=== PATIENT | male | born 1970 | race Caucasian/White ===

== ENCOUNTER 2018-11-30 14:03 | Emergency (ER) | payer OTHER ==
[~2018-11-30] VITALS: Ht 180.3 cm; Wt 153.1 kg
[~2018-11-30 14:03] MED LIST: ATEN25TA7 PO
[2018-11-30 14:15] VITALS: BP 168/109
--- NOTE | 2018-11-30 14:39 | NUR ---
BIB SIGNIFICANT OTHER C/O NAUSEA X1 HR. PT STATES HE "WAS JUST SITTING AT HOME AND FELT LIKE HE WAS GOING TO PASS OUT". PT STATES TO FEEL SOME ANXIETY. DENIES VOMITING OR DIARRHEA. DENIES PAIN AT THIS TIME. DENIES FALLS. AAOX4. PT IN BED IN GOWN; BED IN LOWER LOCKED POSITION; BEDRAILS UP X1. HX: HTN RX: ATENALOL, LOSARTAN
[2018-11-30] MEDS ORDERED: NACL 0.9% 1,000 ML IV ONE (15:30)
[2018-11-30] MEDS ORDERED: ONDANSETRON 4 MG/2 ML VIAL IVP ONE (15:30)
--- NOTE | 2018-11-30 15:37 | NUR ---
XRAY AT BEDSIDE.
--- NOTE | 2018-11-30 15:50 | NUR ---
LAB AT BEDSIDE.
[2018-11-30 16:05] LABS: BASOPHILS # (AUTO) 0.1 K/uL (0.00-0.22); BASOPHILS % (AUTO) 0.8 % (0.0-2.0); EOSINOPHILS # (AUTO) 0.1 K/uL (0-0.4); HEMATOCRIT 41.6 % (36-52); HEMOGLOBIN 13.7 g/dL (12.0-18.0); LYMPHOCYTES # (AUTO) 2.8 K/uL (2.0-11.5); LYMPHOCYTES % (AUTO) 27.4 % (20.5-51.1); MEAN CORPUSCULAR HEMOGLOBIN 29 pg (27-31); MEAN CORPUSCULAR HGB CONC 33 g/dL (33-37); MEAN CORPUSCULAR VOLUME 88.6 fL (80-94); MONOCYTES # (AUTO) 0.9 K/uL (0.8-1.0); MONOCYTES % (AUTO) 8.4 % (1.7-9.3); NEUTROPHILS # (AUTO) 6.4 K/uL (1.8-7.7); NEUTROPHILS % (AUTO) 62.4 % (42.2-75.2); PLATELET COUNT (AUTO) 331 K/uL (140-450); RED BLOOD CELL COUNT(AUTO) 4.69 MIL/uL (4.20-6.10); RED CELL DISTRIBUTION WIDTH 12.9 % (11.6-13.7); WHITE BLOOD COUNT (AUTO) 10.2 K/uL (4.8-10.8)
--- NOTE | 2018-11-30 16:13 | NUR ---
URINE COLLECTED AND READY FOR LAB DECATIZER.
[2018-11-30 16:23] LABS: CARBON DIOXIDE 27.9 mmol/L (21-32); POTASSIUM 3.9 mmol/L (3.5-5.1)
[2018-11-30 16:29] LABS: ALBUMIN 3.6 g/dL (3.4-5.0); TOTAL BILIRUBIN 0.3 mg/dL (0.0-1.0)
--- NOTE | 2018-11-30 17:09 | NUR ---
PATIENT DENIES ANY DIZZINESS OR NAUSEA, STATES HE FEELS SO MUCH BETTER.
[2018-11-30 17:11] LABS: BARBITURATE, URINE NEGATIVE ng/ml (NEG <=200); BENZODIAZEPINE, URINE NEGATIVE ng/mL (NEG <=200); CANNABINOID, URINE NEGATIVE ng/mL (NEG <=50); COCAINE, URINE NEGATIVE ng/mL (NEG <=300); OPIATE, URINE NEGATIVE ng/mL (NEG <=2000); PHENCYCLIDINE SCREEN,URINE NEGATIVE ng/mL (NEG <=25)
[2018-11-30 17:20] LABS: APPEARANCE,URINE CLEAR (CLEAR); COLOR,URINE YELLOW (YELLOW)
[2018-11-30 17:21] LABS: PH,URINE 6.5 (5.0-9.0)
[2018-11-30 17:22] LABS: BILIRUBIN,URINE NEGATIVE (NEGATIVE); BLOOD, URINE NEGATIVE (NEGATIVE); LEUKOCYTE ESTERASE ,URINE NEGATIVE (NEGATIVE); NITRITE, URINE NEGATIVE (NEGATIVE); UGLUCOSE NEGATIVE (NEGATIVE)
[2018-11-30 18:29] VITALS: BP 146/85
== END 2018-11-30 18:29 | disposition home or self-care (01) ==
LOC: MED 14:03
DX: I10 Essential (primary) hypertension (principal); R11.0 Nausea; H53.149 Visual discomfort, unspecified; F17.210 Nicotine dependence, cigarettes, uncomplicated; Z79.899 Other long term (current) drug therapy; Z88.8 Allergy status to other drugs, medicaments and biological substances
CPT/HCPCS: 36415; 71045; 80053; 80305; 81003; 84484; 85025; 93005; 96361; 96374; 99284; J2405; J7030; Q0092

== ENCOUNTER 2019-07-29 19:54 | Emergency (ER) | payer OTHER ==
[~2019-07-29] VITALS: Ht 180.3 cm; Wt 149.7 kg
[2019-07-29 20:06] VITALS: BP 157/77
[2019-07-29] MEDS ORDERED: NACL 0.9% 500 ML IV ONE (20:25)
[2019-07-29] MEDS ORDERED: KETOROLAC 30 MG/ML VIAL IVP ONE (20:25)
[2019-07-29 20:56] LABS: BASOPHILS # (AUTO) 0.1 K/uL (0.00-0.22); BASOPHILS % (AUTO) 0.6 % (0.0-2.0); EOSINOPHILS # (AUTO) 0.2 K/uL (0-0.4); EOSINOPHILS % (AUTO) 1.6 % (0.0-4.0); HEMATOCRIT 40.6 % (36-52); HEMOGLOBIN 13.8 g/dL (12.0-18.0); LYMPHOCYTES # (AUTO) 4.1 K/uL (2.0-11.5); MEAN CORPUSCULAR HEMOGLOBIN 30 pg (27-31); MEAN CORPUSCULAR HGB CONC 34 g/dL (33-37); MONOCYTES # (AUTO) 0.9 K/uL (0.8-1.0); MONOCYTES % (AUTO) 8.7 % (1.7-9.3); NEUTROPHILS % (AUTO) 49.1 % (42.2-75.2); PLATELET COUNT (AUTO) 297 K/uL (140-450); RED BLOOD CELL COUNT(AUTO) 4.62 MIL/uL (4.20-6.10); RED CELL DISTRIBUTION WIDTH 13.8 % (11.6-13.7); WHITE BLOOD COUNT (AUTO) 10.2 K/uL (4.8-10.8)
[2019-07-29 21:31] LABS: ANION GAP 16.1 (8-16); CARBON DIOXIDE 24.4 mmol/L (21-32); CREATININE 1.2 mg/dL (0.7-1.3); POTASSIUM 3.5 mmol/L (3.5-5.1)
[2019-07-29 21:34] LABS: ALBUMIN 3.9 g/dL (3.4-5.0); TOTAL BILIRUBIN 0.5 mg/dL (0.0-1.0)
[2019-07-29 23:30] VITALS: BP 129/71
== END 2019-07-29 23:30 | disposition home or self-care (01) ==
LOC: MED 19:54
DX: N20.0 Calculus of kidney (principal); I10 Essential (primary) hypertension; Z79.899 Other long term (current) drug therapy; Z88.8 Allergy status to other drugs, medicaments and biological substances
CPT/HCPCS: 36415; 74176; 80053; 81002; 85025; 96374; 99284; J1885; J7030